=== PATIENT | male | born 1960 | race Caucasian/White ===

== ENCOUNTER 2019-09-11 08:03 | Emergency (ER) | payer MEDICAID ==
--- NOTE | 2019-09-11 09:00 | ED Physician Documentation ---
PD HPI LOWER EXT INJURY - Stated complaint Stated Complaint: RT ANKLE PAIN - Chief complaint Chief Complaint: Ext Problem - History obtained from History obtained from: Patient - History of Present Illness PD HPI LOW EXT INJURY LOCATION: Right, Ankle Type of injury: Twist Where injury occurred: Home Timing - onset: Yesterday Timing - duration: Days (1) Timing - details: Abrupt onset, Still present Improved by: Rest, Ice, Immobilization Worsened by: Moving, Palpating Associated symptoms: Swelling. No: Weakness, Numbness, Tingling Similar symptoms before: Diagnosis (ankle sprain) Recently seen: Not recently seen - Additional information Additional information: 59-year-old male was mowing his lawn yesterday when he rolled his right ankle. He has pain and swelling to the lateral aspect of the ankle and he feels this is coming up higher than it usually has in the past when he is rolled his ankle. He is having some trouble bearing weight but he is able to walk. Review of Systems Constitutional: denies: Fever Respiratory: denies: Dyspnea GI: denies: Vomiting PD PAST MEDICAL HISTORY - Past Medical History Past Medical History: Yes - Past Surgical History Past Surgical History: No - Present Medications Home Medications: Ambulatory Orders Medication Instructions Recorded Confirmed No Known Home Medications 09/11/19 09/11/19 - Allergies Allergies/Adverse Reactions: Allergies Allergy/AdvReac Type Severity Reaction Status Date / Time No Known Drug Allergies Allergy Verified 09/11/19 08:15 - Social History Does the pt smoke?: Yes Smoking Status: Current every day smoker Does the pt drink ETOH?: No Does the pt have substance abuse?: No - Immunizations Immunizations are current?: Yes PD ED PE NORMAL - Vitals Vital signs reviewed: Yes (hypertensive ) - General General: Alert and oriented X 3, No acute distress, Well developed/nourished - HEENT HEENT: Atraumatic, PERRL, EOMI - Respiratory Respiratory: No respiratory distress - Derm Derm: Normal color, Warm and dry - Extremities Extremities: Other (There is swelling point tenderness to the lateral malleolus and over the talofibular ligament. There is pain to palpation over the distal fibula down to about the last quarter of the fibula. There is no crepitance. 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 Questionable tiny avulsion fracture versus degenerative changes along the dorsal aspect of the distal talar bone. Correlate with area of pain. No acute osseous abnormality is seen otherwise. 2. 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 This is not the patient's area of tenderness. He is tender along the distal quarter of the fibula. He is placed into a Aircast and instructed to wear this / for 2 weeks. Departure - Departure Disposition: 01 Home, Self Care Clinical Impression: Ankle sprain Qualifiers: Encounter type: initial encounter Involved ligament of ankle: calcaneofibular ligament Laterality: right Qualified Code(s): S93.411A - Sprain of calcaneofibular ligament of right ankle, initial encounter Condition: Stable Instructions: ED Sprain Ankle W X Ray Follow-Up: [facility] [Provider Group]
--- NOTE | 2019-09-11 09:02 | XRAY Report ---
Reason: lateral swelling pain Procedure Date: 09/11/2019 Accession Number: [id number] / [id number] Procedure: XR - Ankle 3 View RT CPT Code: Final Report FULL RESULT: EXAM: RIGHT ANKLE RADIOGRAPHY EXAM DATE: 09/11/2019 08:45 AM. CLINICAL HISTORY: Right ankle pain. COMPARISON: None. TECHNIQUE: 3 views. FINDINGS: Bones: Small partly corticated osseous fragment projects over the dorsal aspect over the distal talar bone on lateral view equivocal for tiny avulsion fracture. Otherwise, no fracture or bone lesion is identified. Minor plantar spurring is seen. Joints: Mild degenerative changes are seen in the tibiotalar joint. Normal alignment. Soft Tissues: Normal. No soft tissue swelling. IMPRESSION: 1. Questionable tiny avulsion fracture versus degenerative changes along the dorsal aspect of the distal talar bone. Correlate with area of pain. No acute osseous abnormality is seen otherwise. 2. 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 RADIA
[2019-09-11 09:14] VITALS: BP 134/97
== END 2019-09-11 09:13 | disposition home or self-care (01) ==
LOC: ED 08:03
DX: S93.411A Sprain of calcaneofibular ligament of right ankle, initial encounter (principal); X50.1XXA Overexertion from prolonged static or awkward postures, initial encounter; Y93.H2 Activity, gardening and landscaping; Y92.007 Garden or yard of unspecified non-institutional (private) residence as the place of occurrence of the external cause; F17.200 Nicotine dependence, unspecified, uncomplicated
CPT/HCPCS: 99282; 99283

== ENCOUNTER 2019-09-28 11:25 | Emergency (ER) | payer MEDICAID ==
--- NOTE | 2019-09-28 11:44 | ED Physician Documentation ---
PD HPI URI - Stated complaint Stated Complaint: COUGH/R EAR PX - Chief complaint Chief Complaint: Heent - History obtained from History obtained from: Patient - History of Present Illness Timing - onset: How many days ago (7) Timing duration: Days (7) Timing details: Gradual onset, Still present Associated symptoms: Ear pain (right ear since yesterday), Productive cough (minimally productive cough of clear/white sputum), Dyspnea. No: Fever, Chills, Sore throat, Swollen nodes, Hemoptysis, Chest pain Contributing factors: No: Sick contact, Travel, Immunocompromised, COPD / asthma (not diagnosed but is group home smoker with baseline wheeziness, per patient.) Similar symptoms before: Has not had sx before Review of Systems Constitutional: reports: Myalgias, Fatigue. denies: Fever, Chills Ears: reports: Ear pain (right) Nose: reports: Congestion, Sinus pressure / pain. denies: Rhinorrhea / runny nose Throat: denies: Sore throat Cardiac: denies: Palpitations, Pedal edema, Calf pain Respiratory: reports: Dyspnea, Cough, Wheezing GI: denies: Abdominal Pain, Nausea, Vomiting, Diarrhea Skin: denies: Rash, Lesions PD PAST MEDICAL HISTORY - Past Medical History Past Medical History: No - Past Surgical History Past Surgical History: No - Present Medications Home Medications: Ambulatory Orders Medication Instructions Recorded Confirmed Albuterol Sulfate [Albuterol 2 puffs IH QID #1 hfa.aer.ad 09/28/19 Sulfate Hfa] Benzonatate [Tessalon Perle] 100 - 200 mg PO TID PRN #30 capsule 09/28/19 cefUROXime axetiL [Ceftin] 500 mg PO BID 7 Days #28 tablet 09/28/19 dexAMETHasone [Decadron] 4 mg PO DAILY #5 tablet 09/28/19 - Allergies Allergies/Adverse Reactions: Allergies Allergy/AdvReac Type Severity Reaction Status Date / Time No Known Drug Allergies Allergy Verified 09/11/19 08:15 - Social History Does the pt smoke?: Yes Smoking Status: Current every day smoker Does the pt drink ETOH?: Yes Does the pt have substance abuse?: No Substance Use and Type: Marijuana - Immunizations Immunizations are current?: Yes PD ED PE NORMAL - Vitals Vital signs reviewed: Yes - General General: Alert and oriented X 3, No acute distress, Well developed/nourished - HEENT HEENT: Pharynx benign. No: Ears normal (Left ear is normal. The right ear shows redness swelling and distorted landmarks on the right tympanic membrane.) - Neck Neck: Supple, no meningeal sign, No adenopathy - Cardiac Cardiac: RRR, No murmur - Respiratory Respiratory: No: Clear bilaterally (No coarse sounds are heard. He does have diffuse expiratory wheezing. There is no prolonged expiratory phase. Normal voice. He does have cough inspired with breathing.) - Abdomen Abdomen: Soft, Non tender - Derm Derm: Normal color, Warm and dry - Extremities Extremities: No tenderness to palpate, Normal ROM s pain, No edema, No calf tenderness / cord - Neuro Neuro: Alert and oriented X 3, No motor deficit, Normal speech Results - Vitals Vitals: Vital Signs - 24 hr 09/28/19 09/28/19 09/28/19 11:31 12:25 13:18 Temperature 36.3 C L 37.1 C Heart Rate 98 88 85 Respiratory 16 18 16 Rate Blood Pressure 144/73 H 121/75 O2 Saturation 93 92 Oxygen O2 Source Room air - Rads (name of study) chest xray Radiology: Prelim report reviewed (Small possible patchy infiltrate in the right base consistent with developing pneumonia.), See rad report PD MEDICAL DECISION MAKING - ED course Complexity details: re-evaluated patient (He does feel improved after nebulizer inhalers and the Tessalon for cough. He has possible developing pneumonia on x- ray and also a localized otitis media so antibiotics would be indicated and appropriate. We will also give inhaler and steroids and Tessalon.), considered differential, d/w patient Departure - Departure Disposition: 01 Home, Self Care Clinical Impression: Lower respiratory infection (e.g., bronchitis, pneumonia, pneumonitis, pul monitis) Otitis media Qualifiers: Otitis media type: suppurative Chronicity: acute Laterality: right Recurrence: non-recurrent Spontaneous tympanic membrane rupture: without spontaneous rupture Qualified Code(s): H66.001 - Acute suppurative otitis media without spontaneous rupture of ear drum, right ear Condition: Stable Record reviewed to determine appropriate education?: Yes Instructions: ED Upper Resp Infec Abx Tx, ED Otitis Media Acute Adult Prescriptions: Albuterol Sulfate [Albuterol Sulfate Hfa] 2 puffs IH QID #1 hfa.aer.ad Benzonatate [Tessalon Perle] 100 - 200 mg PO TID PRN #30 capsule PRN Reason: Cough cefUROXime axetiL [Ceftin] 500 mg PO BID 7 Days #28 tablet dexAMETHasone [Decadron] 4 mg PO DAILY #5 tablet Comments: Use the albuterol inhaler 2 to 3 puffs 4 times a day for the next several days to a week to help with breathing and decreased cough and wheezing. Decadron steroid daily for 5 more days to decrease bronchial inflammation. Tessalon if needed for cough suppression. You do have an infection appearance of the right ear and also a early pneumonia appearance on your x-ray. For these will use antibiotics as directed for a week. Your Verenice test result will come in tomorrow and we will call you with the results. Discharge Date/Time: 09/28/19 13:21
[2019-09-28] MEDS ORDERED: cephALEXin 250 MG CAPSULE PO STA (12:02)
[2019-09-28] MEDS ORDERED: ALBUTEROL 1 PUFF INH STA (12:02)
[2019-09-28] MEDS ORDERED: DEXAMETHASONE 10 MG/ML VIAL PO STA (12:02)
[2019-09-28] MEDS ORDERED: CHERRY SYRUP 10 ML UDC PO ONE (12:02)
[2019-09-28] MEDS ORDERED: BENZONATATE 100 MG CAPSULE PO STA (12:02)
--- NOTE | 2019-09-28 12:23 | XRAY Report ---
PROCEDURE: Chest 2 View X-Ray INDICATIONS: dyspnea/ cough TECHNIQUE: 2 view(s) of the chest. COMPARISON: None. FINDINGS: Surgical changes and devices: None. Lungs and pleura: No pleural effusions or pneumothorax. There is a minimal appearance of coarsening at the right base. Mediastinum: Mediastinal contours are normal. Heart size is normal. Bones and chest wall: No suspicious bony abnormalities. Soft tissues appear unremarkable. IMPRESSION: Minimal right basilar coarsening. This could represent dependent atelectasis. However, d eveloping pneumonia cannot be excluded. Reviewed by: Patt Paulson MD on 09/28/2019 12:22 PM PDT Approved by: Patt Paulson MD on 09/28/2019 12:22 PM PDT Station ID: [id number]
[2019-09-28 13:19] VITALS: BP 121/75
== END 2019-09-28 13:21 | disposition home or self-care (01) ==
LOC: ED 11:25
DX: J22 Unspecified acute lower respiratory infection (principal); H66.001 Acute suppurative otitis media without spontaneous rupture of ear drum, right ear; Z20.828 Contact with and (suspected) exposure to other viral communicable diseases; F17.200 Nicotine dependence, unspecified, uncomplicated
CPT/HCPCS: 71046; 87635; 94640; 99284; A9270; 81599

== ENCOUNTER 2019-10-12 13:01 | Emergency (ER) | payer MEDICAID ==
[2019-10-12] MEDS ORDERED: IPRATROPIUM/ALBUTEROL 3 ML NEB INH STA (13:52)
--- NOTE | 2019-10-12 13:54 | ED Physician Documentation ---
History of Present Illness - Stated complaint Stated Complaint: SOA - Chief complaint Chief Complaint: Resp - History obtained from History obtained from: Patient - Additonal information Additional information: Patient comes emergency department complaining of shortness of breath and cough that does not seem to have gotten any better since he was seen here 2 weeks ago and diagnosed with pneumonia. Patient states he was started on antibiotics and inhaler at that time and that it did not really seem to change anything. Patient states that he has not had any fevers, and that he is just been coughing up a mild amount of thick sputum which is not frothy like it used to be. Patient is a smoker and has a history of COPD. He denies any new symptoms. No chest pain. No other complaints at this time. Review of Systems Ten Systems: 10 systems reviewed and negative Constitutional: reports: Reviewed and negative Eyes: reports: Reviewed and negative Ears: reports: Reviewed and negative Nose: reports: Reviewed and negative Throat: reports: Reviewed and negative Cardiac: reports: Reviewed and negative Respiratory: reports: Dyspnea, Cough GI: reports: Reviewed and negative : reports: Reviewed and negative Skin: reports: Reviewed and negative Musculoskeletal: reports: Reviewed and negative Neurologic: reports: Reviewed and negative Psychiatric: reports: Reviewed and negative Endocrine: reports: Reviewed and negative Immunocompromised: reports: Reviewed and negative PD PAST MEDICAL HISTORY - Past Surgical History Past Surgical History: No - Present Medications Home Medications: Ambulatory Orders Medication Instructions Recorded Confirmed Albuterol Sulfate [Albuterol 2 puffs IH QID #1 hfa.aer.ad 09/28/19 Sulfate Hfa] Benzonatate [Tessalon Perle] 100 - 200 mg PO TID PRN #30 capsule 09/28/19 cefUROXime axetiL [Ceftin] 500 mg PO BID 7 Days #28 tablet 09/28/19 dexAMETHasone [Decadron] 4 mg PO DAILY #5 tablet 09/28/19 - Allergies Allergies/Adverse Reactions: Allergies Allergy/AdvReac Type Severity Reaction Status Date / Time No Known Drug Allergies Allergy Verified 09/11/19 08:15 - Social History Does the pt smoke?: Yes Smoking Status: Current every day smoker Does the pt drink ETOH?: Yes Does the pt have substance abuse?: No - Immunizations Immunizations are current?: Yes PD ED PE NORMAL - Vitals Vital signs reviewed: Yes - General General: Alert and oriented X 3, No acute distress - HEENT HEENT: Atraumatic, PERRL, EOMI, Moist mucous membranes - Neck Neck: Supple, no meningeal sign - Cardiac Cardiac: RRR, No murmur, Strong equal pulses - Respiratory Respiratory: No respiratory distress, Other (Patient has coarse, rhonchorous bilateral expiratory wheezes.) - Abdomen Abdomen: Soft, Non tender, Non distended - Derm Derm: Normal color, Warm and dry, No rash - Extremities Extremities: No deformity, No edema, No calf tenderness / cord - Neuro Neuro: Alert and oriented X 3 - Psych Psych: Normal mood, Normal affect Results - Vitals Vitals: Vital Signs - 24 hr 10/12/19 10/12/19 10/12/19 13:04 13:43 14:18 Temperature 36.1 C L Heart Rate 104 H 104 H 89 Respiratory 22 22 18 Rate Blood Pressure 130/77 130/77 O2 Saturation 95 95 10/12/19 15:12 Temperature 36.4 C L Heart Rate 85 Respiratory 20 Rate Blood Pressure 112/85 H O2 Saturation 92 Oxygen O2 Source Room air - Rads (name of study) chest xr Radiology: Final report received, EMP read indepedently, See rad report (No acute cardiopulmonary pathology.) PD MEDICAL DECISION MAKING - ED course Complexity details: reviewed results, re-evaluated patient, considered differential, d/w patient ED course: Patient was worked up with a repeat chest x-ray and given a DuoNeb while in the emergency department. Patient is found to be feeling somewhat better. The chest x-ray was negative and I had discussed with the patient that he may still be recovering from pulmonary stress of the pneumonia, compounded by his COPD and smoking. I do not find any indication for further antibiotics. I have advised patient follow-up with his primary care physician. We have discussed the usual indications for return. Departure - Departure Disposition: 01 Home, Self Care Clinical Impression: Cough COPD (chronic obstructive pulmonary disease) Qualifiers: COPD type: unspecified COPD Qualified Code(s): J44.9 - Chronic obstructive pulmonary disease, unspecified Condition: Stable Instructions: ED COPD Flare Comments: Your repeat chest x-ray actually looks quite good. There is no evidence of pneumonia there now. Most likely, you are still recovering from the pneumonia that you had, which can cause an ongoing cough for up to several weeks afterward, especially if you have an underlying condition such as COPD and smoking. Please be sure you get plenty of fluids and rest. Please work with your doctor on plan to quit smoking. If you are not feeling better in a couple of weeks, please follow-up with your primary care physician to be reevaluated. Discharge Date/Time: 10/12/19 15:28
--- NOTE | 2019-10-12 14:37 | XRAY Report ---
PROCEDURE: Chest 2 View X-Ray INDICATIONS: cough TECHNIQUE: 2 view(s) of the chest. COMPARISON: 09/28/2019. FINDINGS: Surgical changes and devices: None. Lungs and pleura: No pleural effusions or pneumothorax. Lungs are clear. Mediastinum: Mediastinal contours are normal. Heart size is normal. Bones and chest wall: No suspicious bony abnormalities. Soft tissues appear unremarkable. IMPRESSION: No acute cardiopulmonary pathology. Reviewed by: Amish Mchugh MD on 10/12/2019 2:35 PM PDT Approved by: Amish Mchugh MD on 10/12/2019 2:35 PM PDT Station ID: [id number]
[2019-10-12 15:12] VITALS: BP 112/85
== END 2019-10-12 15:28 | disposition home or self-care (01) ==
LOC: ED 13:01
DX: J44.9 Chronic obstructive pulmonary disease, unspecified (principal); F17.200 Nicotine dependence, unspecified, uncomplicated
CPT/HCPCS: 71046; 94640; 99283; 99284

== ENCOUNTER 2019-11-28 23:03 | Emergency (ER) | payer MEDICAID ==
[2019-11-28 23:14] VITALS: BP 115/74
--- NOTE | 2019-11-29 | ED Physician Documentation ---
History of Present Illness - Stated complaint Stated Complaint: L THUMB LAC - Chief complaint Chief Complaint: Laceration - History obtained from History obtained from: Patient - Additonal information Additional information: Patient is a [id number] male complains with laceration to the left thumb. Patient states that he was using a kitchen knife when he accidentally lacerated his left thumb. He denies any other complaints. Review of Systems Constitutional: reports: Reviewed and negative Eyes: reports: Reviewed and negative Ears: reports: Reviewed and negative Nose: reports: Reviewed and negative Throat: reports: Reviewed and negative Cardiac: reports: Reviewed and negative Respiratory: reports: Reviewed and negative GI: reports: Reviewed and negative : reports: Reviewed and negative Skin: reports: Laceration (s) Musculoskeletal: reports: Reviewed and negative Neurologic: reports: Reviewed and negative Psychiatric: reports: Reviewed and negative Endocrine: reports: Reviewed and negative Immunocompromised: reports: Reviewed and negative PD PAST MEDICAL HISTORY - Past Surgical History Past Surgical History: No - Present Medications Home Medications: Ambulatory Orders Medication Instructions Recorded Confirmed Albuterol Sulfate [Albuterol 2 puffs IH QID #1 hfa.aer.ad 09/28/19 Sulfate Hfa] Benzonatate [Tessalon Perle] 100 - 200 mg PO TID PRN #30 capsule 09/28/19 cefUROXime axetiL [Ceftin] 500 mg PO BID 7 Days #28 tablet 09/28/19 dexAMETHasone [Decadron] 4 mg PO DAILY #5 tablet 09/28/19 - Allergies Allergies/Adverse Reactions: Allergies Allergy/AdvReac Type Severity Reaction Status Date / Time No Known Drug Allergies Allergy Verified 11/28/19 23:14 - Social History Does the pt smoke?: Yes Smoking Status: Current every day smoker Does the pt drink ETOH?: Yes Does the pt have substance abuse?: No - Immunizations Immunizations are current?: Yes PD ED PE NORMAL - Vitals Vital signs reviewed: Yes - General General: Alert and oriented X 3, No acute distress - HEENT HEENT: PERRL - Neck Neck: Supple, no meningeal sign - Cardiac Cardiac: RRR, No murmur - Respiratory Respiratory: Clear bilaterally - Abdomen Abdomen: Normal bowel sounds, Soft, Non tender, Non distended - Derm Derm: Warm and dry - Extremities Extremities: Other (The tip of the left thumb has a superficial distal laceration the very distal portion of the fingernail was also lacerated. His compartments are soft sensations intact light touch neurovascular intact) - Neuro Neuro: Alert and oriented X 3 - Psych Psych: Normal mood, Normal affect Results - Vitals Vitals: Vital Signs - 24 hr 11/28/19 23:09 Temperature 36.4 C L Heart Rate 100 Respiratory 18 Rate Blood Pressure 115/74 O2 Saturation 99 Oxygen O2 Source Room air Procedures - Laceration (location) Finger left Length in cm: 1 Wound type: Linear Neurovascular status: Sensory intact, Motor intact, Vascular intact Wound Preparation: Irrigated copiously NS, Other (Irrigated copiously, no foreign bodies identified superficial flap) Skin layer closure: Dermabond Other: Tetanus booster given Complexity: Simple, Other (X-rays were negative superficial flap was Dermabond.) PD MEDICAL DECISION MAKING - ED course Complexity details: d/w patient, other (X-rays were negative patient would like to leave now I explained to him that I would like to do a digital block and apply sutures however he is refusing.Patient wants the wound glued. ) ED course: Patient has medical decision-making capability and can passively. He wants to leave. I explained to him that I recommend that I do a digital block and perform sutures however he would just like to be glued with some Dermabond the wound ultimately was irrigated tetanus was ordered. And Dermabond was applied to the wound. With good wound edge approximation patient reports he will follow-up with his primary care provider on Saturday. Departure - Departure Disposition: 01 Home, Self Care Clinical Impression: Laceration of left thumb Qualifiers: Encounter type: initial encounter Damage to nail status: unspecified Foreign body presence: unspecified Qualified Code(s): S61.012A - Laceration without foreign body of left thumb without damage to nail, initial encounter Condition: Stable Instructions: ED Laceration Hand Follow-Up: your, doctor [Other] Comments: Follow-up with your physician on Saturday for recheck. Return for any concerns to include worsening swelling fevers.Keep wound bandaged and protected at all times. Discharge Date/Time: 11/29/19 00:50
--- NOTE | 2019-11-29 08:43 | XRAY Report ---
PROCEDURE: Hand 3 View LT INDICATIONS: laceration TECHNIQUE: 3 views of the hand(s) acquired. COMPARISON: None FINDINGS: Bones: No fractures or dislocations. No suspicious bony lesions. Note is made of negative ulnar tamara iance. Soft tissues: No suspicious soft tissue calcifications. No radiopaque foreign bodies are seen. IMPRESSION: No acute bony abnormality is seen. No radiopaque foreign bodies are seen. Reviewed by: Dio Gaston MD on 11/29/2019 7:42 AM ANGI Approved by: Dio Gaston MD on 11/29/2019 7:42 AM ANGI Station ID: [id number]
== END 2019-11-29 00:50 | disposition home or self-care (01) ==
LOC: ED 23:03
DX: S61.112A Laceration without foreign body of left thumb with damage to nail, initial encounter (principal); W26.0XXA Contact with knife, initial encounter; Y93.G1 Activity, food preparation and clean up; F17.200 Nicotine dependence, unspecified, uncomplicated; Z23 Encounter for immunization
CPT/HCPCS: 12001; 99282; 99283